=== PATIENT | female | born 1985 | race Caucasian/White ===

== ENCOUNTER 2024-01-03 13:37 | Outpatient (CLI) | payer OTHER, SELFPAY ==
--- NOTE | ~2024-01-03 | US_ITS ---
US pelvic complete w TV Ordering provider: Deloris Lindsey, History: . RLQ pain . Comparison: None. Technique: Transabdominal and endovaginal ultrasound of the pelvis (Doppler ultrasound interrogation techniques used as needed for this exam.) FINDINGS: CERVIX: Normal. UTERUS: Measures 8.3x 4.3x 5.6 cm in length which is within normal limits and is anteverted. No myom etrial masses. Prominent varices are seen peripherally. ENDOMETRIUM: Normal in thickness measuring 11.6 mm. (Note: the premenopausal endometrium may measure up to 16 mm when in the secretory phase.) No endometrial masses, cysts or fluid. CUL DE SAC: No free fluid. RIGHT OVARY: Normal in size measuring 2.7x 1.7x 1.4 Normal echotexture. Doppler vascular flow present . Calcifications are seen in the ovary. LEFT OVARY: Normal in size measuring 3.5x 1.9x 2.3 Normal echotexture. Doppler vascular flow present. Isoechoic well-circumscribed area is seen measuring 1.9 x 1.7 x 1.2 cm. ADNEXA: Normal. No mass. IMPRESSION: Isoechoic area seen in the left ovary which may be complex cyst. Follow-up advised. Slightly prominen t endometrium although within normal limits. Otherwise, normal pelvic ultrasound. Reviewed, dictated and finalized at location A. IMPRESSION: Isoechoic area seen in the left ovary which may be complex cyst. Follow-up advi sed. Slightly prominent endometrium although within normal limits. Otherwise, n ormal pelvic ultrasound.
== END 2024-01-03 13:38 | disposition home or self-care (01) ==
LOC: ANHIMG 13:38
PROVIDERS: PCP Internal Medicine; Visit Provider Family Medicine
DX: R10.31 Right lower quadrant pain (principal)
CPT/HCPCS: 76830; 76856

== ENCOUNTER 2024-04-05 14:33 | Outpatient (CLI) | payer OTHER, SELFPAY ==
--- NOTE | ~2024-04-05 | US_ITS ---
EXAMINATION: US pelvic complete w TV DATE: 04/05/2024 15:33 INDICATION: Right lower quadrant abdominal pain. TECHNIQUE: Multiple transabdominal and transvaginal sonographic images of the pelvis were obtained. COMPARISON: Ultrasound pelvis 01/03/2024 FINDINGS: TRANSABDOMINAL ULTRASOUND: The uterus measures 8.2 x 4.3 x 5.3 cm. There is no free fluid in the pelvis. TRANSVAGINAL ULTRASOUND: The endometrial complex measures 14 mm in thickness. The right ovary measures 2.2 x 1.7 x 2.4 cm. The left ovary measures 3.5 x 2.1 x 2.6 cm. There is normal vascular flow in the ovaries. IMPRESSION: 1. Normal pelvis. Reviewed, dictated and finalized at location A. IMPRESSION: 1. Normal pelvis.
== END 2024-04-05 14:34 | disposition home or self-care (01) ==
PROVIDERS: PCP Internal Medicine; Visit Provider Family Medicine
DX: R10.31 Right lower quadrant pain (principal)
CPT/HCPCS: 76830; 76856